=== PATIENT | female | born 1970 | race Caucasian/White ===

== ENCOUNTER 2019-03-18 08:51 | Day surgery (SDC) | payer BC ==
[~2019-03-18 08:51] MED LIST: ESCI20 PO; ESTR2 PO; LITH300ER PO; LORA.5 PO; OXYC5 PO
== END 2019-03-18 23:09 | disposition home or self-care (01) ==
LOC: MOI US 08:51 → MOI MAM 09:15 → MOI US 09:15
DX: D24.2 Benign neoplasm of left breast (principal)
CPT/HCPCS: 19083; 77065; 88305; 88342; A4648; G0279

== ENCOUNTER → 2023-06-30 | Outpatient (CLI) | payer BC | END | disposition home or self-care (01) | LOC: LAB SHORT 18:16 | DX: N64.52 Nipple discharge (principal) | CPT/HCPCS: 87205 ==

== ENCOUNTER → 2023-11-03 | Outpatient (CLI) | payer BC ==
[~2023-11-03] MED LIST changes: +AMLO5; +LOSA50
== END ==
LOC: LAB 13:28 → LAB SHORT 13:28
DX: M19.072 Primary osteoarthritis, left ankle and foot (principal)
CPT/HCPCS: 88305; 88311

== ENCOUNTER → 2024-03-22 | Outpatient (CLI) | payer BC ==
[2024-03-25 13:36] LABS: HPV HIGH RISK BY TMA Not Detected; HPV SOURCE Cervical
== END | disposition home or self-care (01) ==
LOC: LAB 10:41 → LAB SHORT 10:41
PROVIDERS: Internal Medicine
DX: Z12.4 Encounter for screening for malignant neoplasm of cervix (principal)
CPT/HCPCS: 87624; G0123